=== PATIENT | female | born 1955 | race Two or more races ===

== ENCOUNTER 2022-06-14 07:47 | Day surgery (SDC) | payer BC ==
[2022-06-14] VITALS (8 sets, daily range): BP systolic 97–125; BP diastolic 65–94
[~2022-06-14] VITALS: Ht 160 cm; Wt 99.8 kg
[~2022-06-14 07:47] MED LIST: ASPI325T4 PO; ESCI-28 PO; LEVO125T7 PO; LISI-275 PO; OMEP20TA PO; PRAV20TA3 PO; SEMA2INJ2 SC
[2022-06-14] MEDS ORDERED: VERAPAMIL 2.5MG/ML INJ 2ML VIAL IV ONE (11:18)
[2022-06-14] MEDS ORDERED: ANGIOMAX 250 MG VIAL IV ONE (11:18)
[2022-06-14] MEDS ORDERED: HEPARIN SODIUM (PORCINE) 5000 UNITS/ML 1ML VIAL ONE (11:18)
[2022-06-14] MEDS ORDERED: LIDOCAINE 2%HCL (LOCAL ANESTH.) INJ 10ml MDV ONE (11:19)
[2022-06-14] MEDS ORDERED: MIDAZOLAM HCL 2MG/2ML 2ml VIAL (1mg/ml) ONE (11:19)
[2022-06-14] MEDS ORDERED: fentaNYL CITRATE 100 MCG/2 ML VL ONE (11:19)
[2022-06-14] MEDS ORDERED: IODIXANOL 320MG/ML 100ML BTL IV ONE (11:19)
[2022-06-14] MEDS ORDERED: SODIUM CHL 0.9% 0 ML ONE (11:19)
== END 2022-06-14 14:16 | disposition home or self-care (01) ==
LOC: CATH 07:47
PROVIDERS: ATTEND Internal Medicine
DX: R94.39 Abnormal result of other cardiovascular function study (principal); I10 Essential (primary) hypertension; E11.9 Type 2 diabetes mellitus without complications; Z79.899 Other long term (current) drug therapy; Z79.84 Long term (current) use of oral hypoglycemic drugs
CPT/HCPCS: 93454; C1725; C1769; C1894; J1644; J2001; J2250; J3010; J7030; Q9967; 99152